=== PATIENT | female | born 1960 | race Caucasian/White ===

== ENCOUNTER → 2023-08-01 12:36 | Outpatient (REF) | payer BC, OTHER, SELFPAY | LOC: WDC 12:36 | PROVIDERS: ATTENDING PHYSICIAN Obstetrics & Gynecology Gynecology | DX: Z12.31 Encounter for screening mammogram for malignant neoplasm of breast (principal) | CPT/HCPCS: 77063; 77067 ==

== ENCOUNTER 2024-06-13 11:49 | Emergency (ER) | payer BC, SELFPAY ==
[2024-06-13 11:56] VITALS: BP 178/94
[2024-06-13 13:00] VITALS: BP 154/76
--- NOTE | 2024-06-13 13:09 | ED.GENMED ---
History of Present Illness
General
Chief Complaint: Chest Pain
Source: patient and physician
Time Seen by Provider: 06/13/24 12:47
History of Present Illness
History of Present Illness:
64-year-old female with past medical history of hyperlipidemia and stage III chronic kidney disease presenting to the ER from primary care provider's office for evaluation of chest discomfort that started last night describing the pain to be a dull
aching sensation which she feels on both the anterior portion of her chest but also in between the shoulders, unchanged with position or movement. Patient does note some discomfort to the left anterior chest with palpation however states the
tenderness she feels with palpation is different than the dull aching sensation within her chest/back. Patient does note about 3 weeks ago she was treated with a course of Levaquin for an upper respiratory illness after she went to urgent care.
Patient reports that her symptoms did not improve very much following the Levaquin. Patient does still endorse a somewhat nonproductive cough with her associated symptoms. Patient is a former smoker, quit in 2002. She does note extensive cardiac
history with both her mother and father. No other concerns presently. Patient states that she believes her mild chronic kidney disease was likely related to overuse of NSAIDs.
Past History
Past History
ED Past Medical History: Renal failure (Stage III chronic kidney disease) and Other (Migraines)
ED Past Surgical History: Other (Breast augmentation, rhinoplasty)
Social History
Tobacco: Non-smoker
Alcohol: Occasional
Drug: None
Personal:
Living: with family
Employment: Employed
Review of Systems
Review of Systems
All Other Systems: ROS reviewed and negative except as documented in HPI and ROS
Phy Exam
Physical Exam
Physical Exam:
GENERAL: Alert , in no apparent distress
EYE: clear conjunctiva b/l
HEAD: NCAT
ENT: mmm.
CARDIAC: Regular rate and rhythm, frequent PVCs on telemetry.
LUNGS: Clear breath sounds bilaterally, no acute respiratory distress, no wheezes/rales/rhonchi
ABDOMEN: Soft, without focal tenderness, no r/g, no cvat
NEUROLOGICAL: Alert and oriented
SKIN: Warm and dry, skin intact.
MUSCULOSKELETAL: No edema, well perfused. No tenderness
PSYCH: Normal and appropriate interaction.
Scores
Heart Failure Risk
Heart Failure Risk Score: Not Applicable
Heart Score for Chest Pain Patients
STEMI patient?: No
History: Slightly or Non-Suspicious
ECG: Normal
Age: >45 - <65 years
Risk Factors: 1 or 2 Risk Factors
Troponin: </= Normal Limit
Heart Score for Chest Pain Patients: 2
Heart Score Risk: 2.5% MACE over next 6 weeks
Withdrawal Assessment of Alcohol
Withdrawal Assessment Completed?: Not applicable
Course
Orders/Labs/Results
Orders:
Orders
06/13/24 11:50
Electrocardiogram (*1) Urgent
Reason for Study: Chest Pain
EKG- Treatment ONCE
06/13/24 13:03
CMP [Comprehensive Metabolic Panel] Urgent
Complete Blood Count/No Diff Urgent
D-Dimer Urgent
Lipase Urgent
Troponin I Urgent
06/13/24 13:28
CT Chest PE Study Urgent
Comment:
Reason For Exam: elevated d-dimer, chest discomfort
06/13/24 13:36
0.9% Sodium Chloride 500 ml [Nss] 500 ml IV BOLUS
Abnormal Lab Results
06/13/24
13:03
MCHC 32.6 L g/dL
(33.0-37.0)
D-Dimer 1.05 H ug/mlFEU
(0.00-0.50)
Sodium 146 H mmol/L
(135-145)
BUN 21 H mg/dl
(7-17)
Creatinine 1.1 H mg/dL
(0.6-1.0)
Glucose 106 H mg/dl
(70-99)
06/13/24 13:03
06/13/24 13:03
Vital Signs
Initial and Last Documented VS:
Initial Vital Signs
Temp Pulse Resp BP Pulse Ox
98.2 F 85 16 178/94 97
06/13/24 11:56 06/13/24 11:56 06/13/24 11:56 06/13/24 11:56 06/13/24 11:56
Last Documented Vital Signs
Temp Pulse Resp BP Pulse Ox
98.2 F 70 15 149/70 99
06/13/24 11:56 06/13/24 14:05 06/13/24 14:05 06/13/24 14:05 06/13/24 14:05
MDM/Problems Addressed
Differential Diagnosis Includes:
Pleurisy, pneumonia, PE, dissection, atypical ACS, pericarditis/myocarditis
MDM/Problems Addressed:
64-year-old female presenting to the ER at the request of primary care provider for chest discomfort, recent upper respiratory illness and completed course of levofloxacin. Currently hemodynamically stable, mild hypertension noted. Will check labs
including troponin and D-dimer. Imaging results. Disposition pending.
Chronic conditions affecting care: Kidney disease
*Radiology
Radiology exam reviewed: radiology read reviewed
*Pulse Oximetry
Patient hypoxic: no
*EKG
Heart Rate: 80
Rate: normal
Rhythm: sinus and PVC's
[place]: normal axis
*Vp Rheumatology Interpretation
Rate: normal
Rhythm: sinus and PVC's
*Critical Care Note
Total Time (30-74mins, 75-104mins- exclusive of procedures): Not Applicable
Patient Management
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
Escalation/DeEscalation of care consider admission/obs:
Patient CT scan shows severe segmental atelectasis within the right middle lobe, mild CAD and degenerative changes within the thoracic spine. There is no evidence for pulmonary embolism or dissection. Patient has negative troponin and otherwise
reassuring labs. Blood pressure much improved during emergency department visit. I discussed the case with pulmonary due to the CTA findings and they are okay with close outpatient follow-up. I also notified patient's primary care provider of the
workup as patient was at their office earlier this morning and they will also follow-up with the patient. Given patient's family history and presenting symptoms patient was also referred to the chest pain hotline for an expedited follow-up. Aware
of return precautions to the ER. Otherwise stable for discharge home.
ED Attending Note
-
Portions of this chart may have been created with voice recognition software.� Occasional wrong word or��sound alike� substitutions may have occurred due to the inherent limitations of voice recognition software.
Discharge Plan
Departure
Patient Disposition: Home (Routine Discharge)
Date of Disposition: 06/13/24
Time of Disposition: 14:55
Patient with high blood pressure during this ER visit?: Yes
Discharge Problem:
Chest pain, Premature ventricular contraction, Atelectasis
Instructions: Chest Pain CBC Follow Up
Prescriptions:
No Action
Qulipta 30 mg Tablet
30 mg PO DAILY
Uverbly
50 mg PO PRN PRN (Reason: .as needed )
Referrals:
Coreen Amor MD [Family Provider] -
Tyler Koenig MD [Active] - (Supervisor [employer] - Please call for appointment)
Stand Alone Forms: Return to Work
Interventions
Interventions:
*Risk Screen - Suicide Last Done: 06/13/24 11:56
*General Assessment Last Done: 06/13/24 11:56
*Neglect/Abuse Screening Last Done: 06/13/24 11:56
*ED- Fall Risk Assessment Last Done: 06/13/24 13:03
*ED COVID-19 Vaccine History Last Done: 06/13/24 12:48
ED- Cardiac Assessment Last Done: 06/13/24 13:01
Discharge Date and Time
Print Language: ROMANSH
[2024-06-13 13:10] LABS: Hematocrit 43.8 % (37.0-47.0); Hemoglobin 14.3 g/dL (12.0-16.0); Mean Corp Hgb Conc. 32.6 g/dL (33.0-37.0); Mean Corpuscular Hgb 28.9 pg (27.0-31.0); Mean Corpuscular Volume 88.5 fL (81.0-99.0); Mean Platelet Volume 10.2 fL (7.4-10.4); Platelet Count 203 10^3/uL (130-400); Red Blood Cell Count 4.95 10^6/uL (4.20-5.40); Red Cell Dist. Width 12.6 % (11.5-14.5); White Blood Cell Count 5.6 10^3/uL (4.8-10.8)
[2024-06-13 13:24] LABS: ALT (SGPT) 16 U/L (0-35); AST (SGOT) 24 U/L (14-36); Albumin 4.6 g/dl (3.5-5.0); Alkaline Phosphatase 72 U/L (38-126); Blood Urea Nitrogen 21 mg/dl (7-17); Calcium 9.9 mg/dl (8.4-10.2); Carbon Dioxide 30 mmol/L (22-30); Chloride 107 mmol/L (98-107); Glucose 106 mg/dl (70-99); Lipase 223 U/L (23-300); Sodium 146 mmol/L (135-145); Total Bilirubin 0.5 mg/dl (0.2-1.3); Total Protein 7.5 g/dl (6.3-8.2); eGFR 56.11
[2024-06-13 13:26] LABS: D-Dimer 1.05 ug/mlFEU (0.00-0.50)
[2024-06-13 13:35] LABS: Troponin I < 0.012 ng/ml
[2024-06-13] MEDS: NSS 500 IV (13:41)
[2024-06-13 14:05] VITALS: BP 149/70
== END 2024-06-13 15:04 | disposition home or self-care (01) ==
LOC: EMR 11:49
PROVIDERS: Physician Assistant Medical; EMERGENCY PHYSICIAN Emergency Medicine; FAMILY PHYSICIAN Emergency Medicine
DX: R07.89 Other chest pain (principal); I49.3 Ventricular premature depolarization; J98.11 Atelectasis; E78.5 Hyperlipidemia, unspecified; N18.30 Chronic kidney disease, stage 3 unspecified
CPT/HCPCS: 99284; 96360; 71275; 80053; 83690; 84484; 85027; 85379; 93005; Q9967

== ENCOUNTER → 2024-07-11 07:28 | Outpatient (REF) | payer BC, OTHER, SELFPAY | LOC: RCS 07:28 | PROVIDERS: ATTENDING PHYSICIAN Internal Medicine Cardiovascular Disease; FAMILY PHYSICIAN Emergency Medicine | DX: Z00.8 Encounter for other general examination (principal) | CPT/HCPCS: 93225; 93226; 93306 ==

== ENCOUNTER → 2024-08-24 10:45 | Outpatient (REF) | payer OTHER, SELFPAY | LOC: WDC 10:45 | PROVIDERS: ATTENDING PHYSICIAN Internal Medicine Critical Care Medicine; FAMILY PHYSICIAN Emergency Medicine; REFERRING PHYSICIAN Obstetrics & Gynecology Gynecology | DX: Z12.31 Encounter for screening mammogram for malignant neoplasm of breast (principal); J98.11 Atelectasis | CPT/HCPCS: 71250 ==

== ENCOUNTER → 2024-09-01 13:25 | Outpatient (REF) | payer OTHER, SELFPAY | LOC: RCS 13:25 | PROVIDERS: ATTENDING PHYSICIAN Internal Medicine Cardiovascular Disease; FAMILY PHYSICIAN Emergency Medicine | DX: I49.3 Ventricular premature depolarization (principal) | CPT/HCPCS: 93017; 93350 ==

== ENCOUNTER → 2024-09-07 17:15 | Outpatient (REF) | payer OTHER, SELFPAY | LOC: WDC 17:15 | PROVIDERS: ATTENDING PHYSICIAN Obstetrics & Gynecology Gynecology; FAMILY PHYSICIAN Emergency Medicine | DX: Z12.31 Encounter for screening mammogram for malignant neoplasm of breast (principal) | CPT/HCPCS: 77063; 77067 ==

== ENCOUNTER → 2025-03-01 08:16 | Outpatient (REF) | payer OTHER, SELFPAY | LOC: RCS 08:16 | PROVIDERS: ATTENDING PHYSICIAN Internal Medicine Cardiovascular Disease | DX: I49.3 Ventricular premature depolarization (principal) | CPT/HCPCS: 93225; 93226 ==